=== PATIENT | female | born 1945 | race Caucasian/White ===

== ENCOUNTER → 2020-03-09 | Outpatient (CLI) | payer MEDICARE, OTHER ==
--- NOTE | 2020-03-09 18:33 | RAD ---
Examination: XR FOOT_LEFT 3 VIEWS History: Reason: LEFT FOOT PAIN, DROPPED PHONE ON 1ST METATARSAL. REDNESS/PAIN / Spl. Instructions: / History: Comparison/Correlation: None Findings: 3 images of the left foot obtained. Narrowing of the first metatarsal joint is present with subchondral sclerosis and spurring. No acute fracture or bone destruction. Small calcaneal spur noted. Degenerative changes involving tarsal metat arsal joints noted. Impression: No acute process. Electronically signed by: Rojas Darby MD (03/09/2020 6:30 PM) [id number]
== END ==
LOC: DXRAD 15:56
PROVIDERS: ATTEND Specialist
DX: M19.072 Primary osteoarthritis, left ankle and foot (principal)
CPT/HCPCS: 73630

== ENCOUNTER 2021-01-09 21:45 | Inpatient (IN) | payer MEDICARE, OTHER ==
[~2021-01-09] VITALS: Ht 157.5 cm; Wt 80.7 kg
[2021-01-09] MEDS ORDERED: LIDOCAINE/EPI/TETRACAINE TOPICAL GEL 3 ML. TP ONE (22:00)
[2021-01-09] MEDS ORDERED: LIDOCAINE 1% Multi-Dose 20 ML VIAL. IJ ONE (22:00)
--- NOTE | 2021-01-09 22:09 | PHYS DOC ---
General Adult EDM: Chief Complaint: MECHANICAL FALL HPI: HPI: Patient is a 75-year-old female who presents to the emergency department following a fall. Patient reports that she was standing on a ladder in her closet when she missed the step and fell down 2 steps. She did hit her head on the wall. She denies any loss of consciousness. Initially she was complaining of bilateral low back pain that she rated 5 out of 10, worse with movement but states that it has resolved. EMS during transfer administered 100 mcg of fentanyl intranasally. Patient is unsure when her last tetanus shot was. Patient denies any nausea, vomiting, vision changes, dizziness, loss of bowel or bladder, saddle anesthesias. (CINDY GOLDBERG APRN) Review of Systems: Review of Systems: Eyes: See HPI HENT: See HPI GI: See HPI : See HPI Musculoskeletal: See HPI Integument: See HPI Neurologic: HPI (CINDY GOLDBERG APRN) Allergies: Allergies: Allergies Coded Allergies Type Severity Reaction Last Updated Verified No Known Drug Allergies 01/09/21 No (CINDY GOLDBERG APRN) Physical Exam: PE: Constitutional: Well developed, well nourished, no acute distress, non-toxic appearance. [] HENT: Normocephalic, 2cm laceration noted to left temporal region of scalp, bilateral external ears normal, oropharynx moist, no oral exudates, nose normal. [] Eyes: PERRL, EOMI, conjunctiva normal, no discharge. [] Neck: Normal range of motion, no bony spinal tenderness, no step-offs or deformities, supple, no stridor. [] Cardiovascular:Heart rate regular rhythm, no murmur [] Lungs & Thorax: Bilateral breath sounds clear to auscultation [] Abdomen: Bowel sounds normal, soft, no tenderness, no masses, no pulsatile masses. [] Skin: Warm, dry, no erythema, no rash. [] Back: No bony spinal tenderness with palpation Extremities: No tenderness, no cyanosis, no clubbing, ROM intact, no edema. [] Neurologic: Alert and oriented X 3, normal motor function, normal sensory function, no focal deficits noted. [] Psychologic: Affect normal, judgement normal, mood normal. [] (CINDY GOLDBERG APRN) EKG: EKG: [] (CINDY GOLDBERG APRN) Radiology/Procedures: Radiology/Procedures: PROCEDURE: CT HEAD AND CERVICAL SPINE WO EXAM: CT HEAD WITHOUT IV CONTRAST CLINICAL HISTORY: Reason: fall, head injury / Spl. Instructions: / History: COMPARISON: None. TECHNIQUE: Routine CT of the head without contrast. Soft tissues and bone windows were reviewed. PQRS compliance statement - One or more of the following individualized dose reduction techniques were utilized for this study: 1. Automated exposure control 2. Adjustment of the mA and/or kV according to patient size 3. Use of iterative reconstruction technique FINDINGS: There is no evidence of hemorrhage, mass or extra-axial fluid collection. Saha-white differentiation is maintained with no evidence of edema. Subcortical, periventricular as well as deep white matter hypoattenuation likely changes of chronic small vessel disease. There is no mass effect or shift of the intracranial structures. The ventricles, basilar cisterns and cortical sulci are normal in size and configuration for the patients stated age. The cerebellum and brainstem are unremarkable. The calvarium demonstrates no evidence of fracture or focal lesion. There is normal aeration of the visualized paranasal sinuses and mastoid air cells. The visualized portions of the orbits are normal. IMPRESSION: No evidence for acute intracranial process. White matter changes likely chronic small vessel disease. EXAM: CT CERVICAL SPINE WITHOUT IV CONTRAST CLINICAL HISTORY: Reason: fall, head injury / Spl. Instructions: / History: COMPARISON: None available. TECHNIQUE: Helical CT of the cervical spine was performed. Axial, coronal and sagittal reformatted images were also performed. PQRS compliance statement - One or more of the following individualized dose reduction techniques were utilized for this study: 1. Automated exposure control 2. Adjustment of the mA and/or kV according to patient size 3. Use of iterative reconstruction technique FINDINGS: Vertebral body heights are preserved. Decreased bone mineral density. No spondylolisthesis. Mild C3-4 and moderate C5-6, C6-7 disc height loss. Small posterior disc osteophyte complexes C3-4, C5-6. Atlantodental degenerative changes are seen. IMPRESSION: No acute cervical spine fracture or subluxation. Electronically signed by: Chilango Wells MD (01/09/2021 10:42 PM) [facility] AND SIGNED BY: CHILANGO WELLS MD DATE: 01/09/212238 CC: EMERGENCY,DEPARTMENT; CINDY GOLDBERG APRN; GENOVEVA EARLY MD ~MTH0 0 PROCEDURE: CT LUMBAR SPINE WO CONTRAST CT lumbar spine without contrast PQRS statement: CT scans at this facility use dose reduction including either automated exposure control, iterative reconstructions, and /or weight based radiation dosing via mA and kV modification when appropriate to reduce radiation dose to as low as reasonably achievable. HISTORY: Fall, injury, low back pain. FINDINGS: Grade 1 anterolisthesis of 3 mm of L4 on L5 associated with disc disease and facet arthritis. There is a chronic appearing T12 vertebral thoracic compression fracture with 50% height loss. Separately there is an acute L1 vertebral compression fracture with fracturing of the trabecular bone destruction and of the anterior vertebral cortex as well as the superior endplate with 10% height loss, no significant bony retropulsion evident. The remainder of the lumbar spine demonstrates intact vertebral height and alignment without additional fractures evident. Lumbar disc bulges and facet spurring with spinal canal and neural foraminal stenoses with severe canal stenosis at L4-L5. Aorta and iliac artery calcified plaque with probable stenotic disease of the common iliac arteries. Medial basilar right lower lobe subpleural irregular 8 mm solid nodule with groundglass halo image 1 cm some [id number]. IMPRESSION: 1. Acute traumatic L1 lumbar vertebral compression fracture as described above 2. Chronic T12 thoracic vertebral compression fracture. 3. Aortoiliac disease as described above. 4. Lumbar disc disease as described above. 5. 8 mm solid irregular pulmonary nodule right lower lobe. Further assessment with a patient CT chest imaging is advised. Electronically signed by: Matthieu Villa MD (01/09/2021 10:58 PM) [facility] [place]CTATED AND SIGNED BY: MATTHIEU VILLA MD DATE: 01/09/21 [id number] CC: EMERGENCY,DEPARTMENT; CINDY GOLDBERG APRN; GENOVEVA EARLY MD ~MTH0 0 (CINDY GOLDBERG APRN) Heart Score: C/O Chest Pain: N/A Risk Factors: Risk Factors: DM, Current or recent (<one month) smoker, HTN, HLP, family history of CAD, obesity. Risk Scores: Score 0 - 3: 2.5% MACE over next 6 weeks - Discharge Home Score 4 - 6: 20.3% MACE over next 6 weeks - Admit for Clinical Observation Score 7 - 10: 72.7% MACE over next 6 weeks - Early Invasive Strategies (CINDY GOLDBERG APRN) Course & Med Decision Making: Course & Med Decision Making Pertinent Labs and Imaging studies reviewed. (See chart for details) [] Patient presents to the emergency department after falling down 2 steps and hitting the left side of her head on the wall. Patient initially was complaining of low back pain. Work-up in the ER consisted of CT imaging of head, neck and lumbar spine. Patient's tetanus was updated. Laceration was cleansed with saline wound wash. It was repaired with yevgeniy. Patient to lerated procedure. Patient educated on laceration care and staple removal. CT imaging of patient's head and neck were unremarkable. Patient's scan of her lumbar spine showed an acute L1 fracture and a chronic appearing thoracic compression fracture. I discussed patient's findings and they were reviewed by Dr. Loja with neurosurgery group at [facility] and he advised to transfer the patient to [facility] for pain management and neurosurgery evaluation. I discussed patient's findings with her and her and they are agreeable to transfer and care plan. IV and pain management ordered. Basic lab work ordered. I contacted Dr. Galvez hospitalist at [facility] and discussed patients case and he agreed to admit the patient under his services for lumbar compression fracture and pain control. Patient notified of treatment plan and is agreeable. 2342. There are no inpatient beds available at [facility]. I discussed patients case with Dr. Chopra and he agreed to admit the patient to his services for pain control. PRN pain medication ordered. Bridge orders placed. Care transferred 0020. (CINDY GOLDBERG APRN) Dragon Disclaimer: Vida Disclaimer: This electronic medical record was generated, in whole or in part, using a voice recognition dictation system. (CINDY GOLDBERG APRN) Laceration Repair Lac Repair Time:2300 Confirmed: Patient, procedure, site, and site correct Consent: Patient has given verbal consent Laceration location:left scalp Shape:linear Depth:superficial Details: Clean with no foreign material Neurovascular, tendon exam: Intact Anesthesia:let Preparation: Sterile field established Irrigation: Wound irrigated with saline wash Debridement: Skin closure: staple Size of suture: Number of staple: 2 Post procedure exam: Circulation, motor, sensory exam intact, bleeding controlled. Complications: None Patient tolerated: Well Performed by: self Total time: 15 minutes (CINDY GOLDBERG APRN) Attending Co-Sign The patient was seen and interviewed as well as examined at the bedside. The chart was reviewed. The case was discussed. Agree with the plan of care. (RADHA FRASER DO) Departure Departure: Impression: Primary Impression: Inadequate pain control Disposition: ADMITTED INPATIENT Admitting Physician: Flavio Chopra Other (CINDY GOLDBERG APRN) Condition: STABLE Referrals: GENOVEVA EARLY MD (PCP) CINDY GOLDBERG APRN Jan 09, 2021 22:09 RADHA FRASER DO Jan 10, 2021 01:28
--- NOTE | 2021-01-09 22:45 | RAD ---
EXAM: CT HEAD WITHOUT IV CONTRAST CLINICAL HISTORY: Reason: fall, head injury / Spl. Instructions: / History: COMPARISON: None. TECHNIQUE: Routine CT of the head without contrast. Soft tissues and bone windows were reviewed. PQRS compliance statement - One or more of the following individualized dose reduction techniques wer e utilized for this study: 1. Automated exposure control 2. Adjustment of the mA and/or kV according to patient size 3. Use of iterative reconstruction technique FINDINGS: There is no evidence of hemorrhage, mass or extra-axial fluid collection. Saha-white differentiation is maintained with no evidence of edema. Subcortical, periventricular as w ell as deep white matter hypoattenuation likely changes of chronic small vessel disease. There is no mass effect or shift of the intracranial structures. The ventricles, basilar cisterns and cortical sulci are normal in size and configuration for the milton ents stated age. The cerebellum and brainstem are unremarkable. The calvarium demonstrates no evidence of fracture or focal lesion. There is normal aeration of the visualized paranasal sinuses and mastoid air cells. The visualized portions of the orbits are normal. IMPRESSION: No evidence for acute intracranial process. White matter changes likely chronic small vessel disease. EXAM: CT CERVICAL SPINE WITHOUT IV CONTRAST CLINICAL HISTORY: Reason: fall, head injury / Spl. Instructions: / History: COMPARISON: None available. TECHNIQUE: Helical CT of the cervical spine was performed. Axial, coronal and sagittal reformatted im ages were also performed. PQRS compliance statement - One or more of the following individualized dose reduction techniques wer e utilized for this study: 1. Automated exposure control 2. Adjustment of the mA and/or kV according to patient size 3. Use of iterative reconstruction technique FINDINGS: Vertebral body heights are preserved. Decreased bone mineral density. No spondylolisthesis. Mild C3-4 and moderate C5-6, C6-7 disc height loss. Small posterior disc osteophyte complexes C3-4, C 5-6. Atlantodental degenerative changes are seen. IMPRESSION: No acute cervical spine fracture or subluxation. Electronically signed by: Chilango Guerra MD (01/09/2021 10:42 PM) [facility]
--- NOTE | 2021-01-09 23:01 | RAD ---
CT lumbar spine without contrast PQRS statement: CT scans at this facility use dose reduction including either automated exposure cont rol, iterative reconstructions, and /or weight based radiation dosing via mA and kV modification when appropriate to reduce radiation dose to as low as reasonably achievable. HISTORY: Fall, injury, low back pain. FINDINGS: Grade 1 anterolisthesis of 3 mm of L4 on L5 associated with disc disease and facet arthriti s. There is a chronic appearing T12 vertebral thoracic compression fracture with 50% height loss. Separately there is an acute L1 vertebral compression fracture with fracturing of the trabecular bone destruction and of the anterior vertebral cortex as well as the superior endplate with 10% height lo ss, no significant bony retropulsion evident. The remainder of the lumbar spine demonstrates intact vertebral height and alignment without addition al fractures evident. Lumbar disc bulges and facet spurring with spinal canal and neural foraminal st enoses with severe canal stenosis at L4-L5. Aorta and iliac artery calcified plaque with probable rich notic disease of the common iliac arteries. Medial basilar right lower lobe subpleural irregular 8 mm solid nodule with groundglass halo image 1 cm some [id number]. IMPRESSION: 1. Acute traumatic L1 lumbar vertebral compression fracture as described above 2. Chronic T12 thoracic vertebral compression fracture. 3. Aortoiliac disease as described above. 4. Lumbar disc disease as described above. 5. 8 mm solid irregular pulmonary nodule right lower lobe. Further assessment with a patient CT chest imaging is advised. Electronically signed by: Sheldon Enciso MD (01/09/2021 10:58 PM) [facility]
[2021-01-09] MEDS ORDERED: DIPH,PERTUSS(ACELL),TET VAC/PF 0.5 ML SYRINGE. VAX IM ONE (23:15)
--- NOTE | 2021-01-09 23:27 | NUR ---
PAGED [facility] HOSPITALIST
[2021-01-10] VITALS (8 sets, daily range): BP systolic 86–165; BP diastolic 56–74
[2021-01-10 00:04] LABS: BASO % 0 % (0-3); EOS % 0 % (0-3); HEMATOCRIT 38.3 % (36.0-47.0); HEMOGLOBIN 12.5 g/dL (12.0-15.5); LYMPH # 0.6 x10^3/uL (1.0-4.8); LYMPH % 5 % (24-48); MEAN CORPUSCULAR HEMOGLOBIN 30 pg (25-35); MEAN CORPUSCULAR HGB CONC 33 g/dL (31-37); MEAN CORPUSCULAR VOLUME 92 fL (79-100); MONO # 0.9 x10^3/uL (0.0-1.1); MONO % 7 % (0-9); NEUT # 10.9 x10^3uL (1.8-7.7); NEUT % 87 % (31-73); PLATELET COUNT 194 x10^3/uL (140-400); RED BLOOD COUNT 4.19 x10^6/uL (3.50-5.40); RED CELL DISTRIBUTION WIDTH 13.9 % (11.5-14.5); WHITE BLOOD COUNT 12.4 x10^3/uL (4.0-11.0)
[2021-01-10 00:11] LABS: CALCIUM 9.2 mg/dL (8.5-10.1); CREATININE 0.9 mg/dL (0.6-1.0); POTASSIUM 3.9 mmol/L (3.5-5.1)
[2021-01-10 00:17] LABS: ALBUMIN 3.4 g/dL (3.4-5.0); ALBUMIN/GLOBULIN RATIO 1.3 (1.0-1.7); TOTAL BILIRUBIN 0.6 mg/dL (0.2-1.0)
--- NOTE | 2021-01-10 01:15 | NUR ---
Admission: The patient, YOSHI BATRES, 75 y/o, F admitted by FRANCOIS POLLACK MD, was given written information regarding hospital policies, unit procedures and contact persons. Pt arrived to room 109 via gurney, accompanied by [facility] and ED RN. Pt here after falling down 2 steps of a ladder at home and hitting the left side of her head on the wall. Pt sustained a head lac and L1 compression fx. Dx: pain control. Head lac was repaired with 2 yevgeniy in the ED, pic taken and placed in chart. Pt A/Ox4, pleasant. Pt currently on bed rest with bed alarmed for safety. Discussed POC, pt V/U. Call light in reach. Valuables were checked and logged. Left in room with pt.
[2021-01-10] MEDS ORDERED: ASPI-889 PO (01:31)
[2021-01-10] MEDS ORDERED: ALLO300T PO (01:31)
[2021-01-10] MEDS ORDERED: HYDR10SY16 PO (01:31)
[2021-01-10] MEDS ORDERED: ATOR20TA58 PO (01:31)
[2021-01-10] MEDS ORDERED: CALC-31 PO (01:31)
[2021-01-10] MEDS ORDERED: VALS160T3 PO (01:31)
[2021-01-10] MEDS ORDERED: AMLO-187 PO (01:31)
[2021-01-10] MEDS ORDERED: TRIA80OI TP (01:31)
[2021-01-10] MEDS ORDERED: CIME300S4 PO (01:31)
[2021-01-10] MEDS ORDERED: CETI10TA16 PO (01:31)
[2021-01-10] MEDS ORDERED: FLUT15.812 NS (01:31)
[2021-01-10] MEDS ORDERED: ONDANSETRON PF 4 MG/2 ML VIAL. IVP PRN (04:45)
--- NOTE | 2021-01-10 11:02 | HP ---
DATE OF SERVICE: 01/10/2021 ADMIT DATE: 01/10/2021 ATTENDING PHYSICIAN: Dr. Chopra. CHIEF COMPLAINT: Low back pain. HISTORY OF PRESENT ILLNESS: The patient is a pleasant 75-year-old female. She was loading some items onto a top shelf. She had fallen in the kitchen. She fell on her buttocks and her left shoulder. Evaluation in the ED showed an acute L1 lumbar compression fracture. There is an old compression fracture at T12 level. There are no other apparent injuries or long bone injuries. Because of severe pain, she was admitted then for bed rest and pain control. The patient did not lose consciousness. PAST MEDICAL HISTORY: Osteoporosis, hypertension and gout. CURRENT MEDICATIONS: Include allopurinol, amlodipine, aspirin, Lipitor, calcium, cetirizine, Tagamet, hydroxyzine, triamcinolone, and valsartan. ALLERGIES: She has no known drug allergies. SOCIAL HISTORY: She is a nonsmoker, nondrinker. She is retired and lives with her of many years. FAMILY HISTORY: Mom at age 42 of a heart attack. Father at age 68 of lung cancer. She has 4 adult children that are grown. REVIEW OF SYSTEMS: Significant for the localized pain. She denied any recent COVID exposure. She has had her vaccine. All other systems reviewed and turned to be negative. PHYSICAL EXAMINATION: GENERAL: When I saw her, this is a pleasant female who was alert. She was at bed rest. INITIAL VITAL SIGNS: Showed a blood pressure 112/58, pulse is 90 and regular, temperature 97.8 degrees Fahrenheit, oxygen saturation maintained at 95% on room air. HEENT: Head is without trauma. Pupils are reactive. Sclerae is nonicteric. The oropharynx is clear. NECK: Supple, no bruits. LUNGS: Good breath sounds. CARDIOVASCULAR: Regular heart tones. No gallop. ABDOMEN: Soft. EXTREMITIES: Showed no cyanosis or edema. NEUROLOGIC FINDINGS: She is bedridden. She is nonambulatory at this time. Speech is fluent. PERTINENT LABORATORY STUDIES: Initial hemoglobin was 12.5 g/dL with a white count of 12,400. Electrolytes, BUN and creatinine all within normal range. Nonfasting blood sugar 155. IMAGING STUDIES: She had a head and neck CT, which showed no pathology. Lumbar spine CT showed an acute L1 vertebral body compression fracture. ASSESSMENT: 1. A 75-year-old female with acute lumbar compression fracture. 2. Severe incapacitating pain. 3. Essential hypertension. 4. Probable osteoporosis. PLAN: 1. Admit to the inpatient unit. 2. Pain relief. 3. Physical Therapy will see her tomorrow for recommendation. If she improves clinically, she can go home with pain meds; if she does not, I would recommend a short stay at a local rehab facility. KURT DR: Graciela TID: [id number] CC: GENOVEVA EARLY MD
[2021-01-10] MEDS: ASPIRIN ENTERIC COATED 81 MG TABLET.DR. PO SCH (11:43)
[2021-01-10] MEDS: ALLOPURINOL 300 MG TABLET. PO SCH (11:44)
[2021-01-10] MEDS ORDERED: FAMOTIDINE 20 MG TABLET PO PRN (12:30)
[2021-01-10] MEDS: LOSARTAN 50 MG TABLET. PO SCH (13:20)
[2021-01-10] MEDS ORDERED: amLODIPine BESYLATE 10 MG TABLET PO SCH (21:00)
[2021-01-11 00:04] VITALS: BP 108/68
[2021-01-11 06:04] VITALS: BP 102/63
--- NOTE | 2021-01-11 07:05 | NUR ---
Pt slept well overnight. Received PRN fentanyl at beginning of shift and reported moderate relief of pain. Pt reports pain is manageable while at rest, but turning in the bed causes her significant discomfort. Pt is still on bed rest, continent of B&B with use of bedpan. Pt reports LBM was 10/18 and feels constipated. Pt given prune juice per request.
[2021-01-11] MEDS: LOSARTAN 50 MG TABLET. PO SCH (08:08)
[2021-01-11] MEDS: ASPIRIN ENTERIC COATED 81 MG TABLET.DR. PO SCH (08:08)
--- NOTE | 2021-01-11 08:15 | PN ---
DATE: 01/11/2021 ATTENDING PHYSICIAN: Dr. Chopra. SUBJECTIVE: Pain is better. She was actually pain free this morning. She has not gotten up with physical therapy yet. There is no nausea. She is otherwise comfortable. OBJECTIVE FINDINGS: VITAL SIGNS: Blood pressure this morning is 102/63, pulse is regular. She is afebrile and oxygen saturation is adequate on room air. HEENT: Head is without trauma. Pupils are reactive. Sclerae nonicteric. Oropharynx clear. NECK: Supple, no bruits. LUNGS: Good breath sounds. CARDIOVASCULAR: Showed regular heart tones. No gallops. ABDOMEN: Soft. EXTREMITIES: Without edema. We have not assessed her gait get, that will be assessed later. ASSESSMENT: 1. Fall at home with acute L1 vertebral body compression fracture. 2. Intractable pain is better. 3. Essential hypertension, currently normotensive. PLAN: 1. Teddy for physical therapy. 2. I will hold her amlodipine as the blood pressure is marginal. 3. Diet as tolerated. 4. We will decide later today whether she needs a higher level of care or whether she can go home tomorrow with oral pain medications. [place] DR: Graciela TID: [id number] CC: GENOVEVA EARLY MD
[2021-01-11 11:16] VITALS: BP 80/50
[2021-01-11] MEDS: ALLOPURINOL 300 MG TABLET. PO SCH (11:25)
--- NOTE | 2021-01-11 16:16 | NUR ---
PT RECEIVED ONE DOSE OF FENTANYL. PT GOT UP TO WORK WITH PT/OT TODAY AND WALKED AROUND. THEY SAID THEY WILL BE RECOMMENDING THAT SHE GO TO A FACILITY. PT TO GO TO [place] TOMORROW. PT RESTED MOST OF THE DAY AND WAS ON AND OFF BETWEEN RA AND 2L OF OXYGEN. PT ON A REGULAR DIET INSTEAD OF RENAL.
[2021-01-11 20:00] VITALS: BP 98/63
[2021-01-11 23:00] VITALS: BP 104/65
[2021-01-12 06:15] VITALS: BP 154/54
[2021-01-12 07:44] VITALS: BP 154/54
[2021-01-12] MEDS: ASPIRIN ENTERIC COATED 81 MG TABLET.DR. PO SCH (07:44)
[2021-01-12] MEDS: LOSARTAN 50 MG TABLET. PO SCH (07:44)
--- NOTE | 2021-01-12 09:11 | DS ---
DATE OF DISCHARGE: 01/12/2021 ATTENDING PHYSICIAN: Dr. Chopra. FINAL DISCHARGE DIAGNOSES: 1. Fall and acute L1 vertebral body compression fracture. 2. Intractable low back pain. 3. Essential hypertension. 4. Osteoporosis. HISTORY AND PHYSICAL: The patient is a pleasant, active 75-year-old female. She had an accident at home. She was placing things in a closet shelf. She fell on her back side, sustaining injury. She has severe intractable low back pain. Workup in the ED showed an acute L1 vertebral body compression fracture. She also had a previous old T12 compression fracture. PHYSICAL EXAMINATION: Please see my dictated note. PERTINENT LABORATORY AND X-RAY STUDIES: Admission hemoglobin was 12.5 g/dL, white count 12,400. Electrolytes, BUN and creatinine all within normal range. Nonfasting blood sugar 150, creatinine 0.9 mg percent. Serology negative for coronavirus. Lumbar CT spine showed an acute traumatic L1 lumbar vertebral compression fracture. There is grade 1 anterolisthesis of 3 mm of L4 and L5. There is an acute L1 vertebral compression fracture with fracturing of the trabecular bone, destruction and anterior vertebral cortex as well as superior endplate with 10% height loss. No significant bony retropulsion evident. COURSE IN THE HOSPITAL: The patient was admitted. The degree of injury did not warrant any consideration for vertebroplasty or other surgical procedure. Conservative therapy with bed rest and pain control. Physical Therapy saw the patient. She did better. Pain was less severe, but she still had difficulty getting in and out of bed. She was agreeable to go to a short stint at a local subacute rehab facility. Therefore, on the fourth hospital day, she was discharged to [facility], the rehab side for continued rehabilitation. I did take the liberty of ordering hydrocodone 7.5/325 one p.o. q. 6 hours p.r.n. pain. She has tolerated this in the past without any nausea or other side effects. Other home meds should be continued, includes aspirin, Lipitor, calcium, cimetidine, fluticasone nasal spray and valsartan 160 mg daily. Because of her normal renal function, I took the liberty of stopping her allopurinol. She is a full code per advanced directives. She was discharged from our hospital in stable condition with explicit instruction and followup care. TOTAL DISCHARGE TIME SPENT: [address]: Graciela TID: [id number] CC: GENOVEVA EARLY MD
[2021-01-12] MEDS: ALLOPURINOL 300 MG TABLET. PO SCH (11:51)
--- NOTE | 2021-01-12 15:16 | NUR ---
PT DISCHARGED. [facility] DISCHARGE PAPERWORK GIVEN TO THE SECONDS INSPECTOR. PT WHEELED TO [facility]AN. PT HAS ALL OF BELONGINGS.
== END 2021-01-12 15:18 | DRG 552 ==
LOC: ER 21:45 → 1 SOUTH 01-10 01:14
PROVIDERS: ADMIT Hospitalist; ATTEND Hospitalist
PROC: 0HQ0XZZ Repair Scalp Skin, External Approach (ICD-10-PCS; principal; 2021-01-10)
DX: S32.019A Unspecified fracture of first lumbar vertebra, initial encounter for closed fracture (principal); S01.01XA Laceration without foreign body of scalp, initial encounter; I10 Essential (primary) hypertension; M81.0 Age-related osteoporosis without current pathological fracture; M10.9 Gout, unspecified; Z20.822 Contact with and (suspected) exposure to COVID-19; W18.39XA Other fall on same level, initial encounter; Z80.1 Family history of malignant neoplasm of trachea, bronchus and lung; Z82.49 Family history of ischemic heart disease and other diseases of the circulatory system; Y93.89 Activity, other specified; Y92.89 Other specified places as the place of occurrence of the external cause; Y99.8 Other external cause status
CPT/HCPCS: 12001; 70450; 72125; 72131; 80053; 85025; 90471; 90715; 96374; J2405; J3010; U0003; 97110; 97116; 97530; 97535; 99285-25